=== PATIENT | female | born 1950 | race Caucasian/White ===

== ENCOUNTER 2023-02-28 07:38 | Emergency (ER) | payer BC ==
[2023-02-28 07:50] VITALS: BMI 35.2
[2023-02-28] MEDS ORDERED: SODIUM CHLORIDE 1,000 ML IV STA (09:23)
[2023-02-28] MEDS ORDERED: ACETAMINOPHEN 1000 MG/100 ML BAG IVPB ONE (09:24)
[2023-02-28] MEDS ORDERED: ACETAMINOPHEN INJECTION 100 ML IVPB ONE (09:57)
[2023-02-28 10:25] LABS: BASO % 0.4 % (0-2.0); HEMATOCRIT 41.9 % (32.4-45.2); LYMPH % 35.9 % (8-40); MCHC 33.4 g/dl (32.0-36.0); MEAN CELL VOLUME 86.7 fl (80-96); MEAN PLT VOLUME 8.4 fl (7.5-11.1); MONO % 6.6 % (3.8-10.2); NEUT % 57.1 % (42.8-82.8); PLATELET COUNT 190 10^3/uL (134-434); RBC 4.83 M/mm3 (3.60-5.2); RDW 14.9 % (11.6-15.6)
[2023-02-28] MEDS ORDERED: KETOROLAC TROMETHAMINE 30 MG/1 ML VIAL IVPUSH ONE (10:41)
[2023-02-28] MEDS ORDERED: KETOROLAC TROMETHAMINE 30 MG/1 ML VIAL ONE (10:46)
[2023-02-28 10:51] LABS: POTASSIUM 4.3 mmol/L (3.5-5.1)
[2023-02-28 10:54] LABS: ALBUMIN 3.6 g/dl (3.4-5.0); BLOOD UREA NITROGEN 14.5 mg/dL (7-18); CALCIUM 8.8 mg/dL (8.5-10.1)
[2023-02-28 10:57] LABS: CREATININE 0.8 mg/dL (0.55-1.3)
[2023-02-28 10:58] LABS: BILIRUBIN,TOTAL 1.8 mg/dL (0.2-1); TOT PROT 7.2 g/dl (6.4-8.2)
[2023-02-28 11:19] LABS: ERYTHROCYTE SEDIMENTATION RATE 10 mm/hr (0-30)
[2023-02-28] MEDS ORDERED: GABAPENTIN 100 MG CAPSULE PO ONE (12:25)
[2023-02-28] MEDS ORDERED: GABAPENTIN 100 MG CAPSULE ONE (12:45)
[2023-02-28 13:56] LABS: PH,URINE 5.5 (5.0-8.0); URINE APPEARANCE CLEAR; URINE BILIRUBIN NEGATIVE (NEGATIVE); URINE COLOR YELLOW; URINE GLUCOSE (UA) NEGATIVE (NEGATIVE); URINE KETONE NEGATIVE (NEGATIVE); URINE LEUK ESTERASE NEGATIVE (NEGATIVE); URINE NITRITE NEGATIVE (NEGATIVE); URINE PROTEIN NEGATIVE (NEGATIVE); URINE UROBILINOGEN 0.2 mg/dL (0.2-1.0)
[2023-02-28 14:47] VITALS: BP 184/68; PULSE 55; RESP 20; TEMP 98.1
== END 2023-02-28 15:21 | disposition home or self-care (01) ==
LOC: JER 07:38
PROC: 3E033NZ Introduction of Analgesics, Hypnotics, Sedatives into Peripheral Vein, Percutaneous Approach (ICD-10-PCS; principal; 2023-02-28)
PROC: 3E033GC Introduction of Other Therapeutic Substance into Peripheral Vein, Percutaneous Approach (ICD-10-PCS; 2023-02-28)
PROC: 3E0337Z Introduction of Electrolytic and Water Balance Substance into Peripheral Vein, Percutaneous Approach (ICD-10-PCS; 2023-02-28)
DX: M79.605 Pain in left leg (principal); M51.26 Other intervertebral disc displacement, lumbar region
CPT/HCPCS: 36415; 72131-TC; 73610-TC-LT-FY; 80053; 81003; 85025; 85651; 86140; 93971-TC; 99285-25